=== PATIENT | female | born 1945 | race Caucasian/White ===

== ENCOUNTER 2017-01-01 15:14 | Observation (INO) ==
[2017-01-01 15:49] LABS: Basophils # 0.1 10*3/uL (0.0-0.2); Basophils % 0.7 % (0.0-0.8); Eosinophils # 0.2 10*3/uL (0.0-0.87); Eosinophils % 1.6 % (0.00-10.9); Hematocrit 36.2 VOL% (35.7-47.0); Hemoglobin 12.4 GM/DL (12.0-16.0); Immature Granulocytes % 0.4 %; Immature Granulocytes Absolute 0.04 #; Lymphocytes # 3.7 10*3/uL (1.4-4.0); Lymphocytes % 35.4 % (21.3-54.2); Mean Corpuscular HGB Conc 34.3 GM/DL (32-36); Mean Corpuscular Hemoglobin 33 PG (27-34); Mean Platelet Volume 10.6 FL (9.6-12.0); Monocytes # 0.8 10*3/uL (0.11-0.8); Monocytes % 7.6 % (1.7-12.7); Neutrophils # 5.7 10*3/uL (1.4-7.4); Neutrophils % 54.3 % (38.7-73.9); Platelet Count 205 T/CUMM (130-400); Red Blood Count 3.81 MC/CUMM (3.8-5.5); Red Cell Distribution Width 13.6 % (9.3-17.3); White Blood Count 10.4 T/CUMM (4-12)
--- NOTE | 2017-01-01 16:05 | XRay Report ---
XR chest 2V Indication: Chest pain Comparison: Chest x-ray dated March 16, 2014 Technique: Frontal and lateral views of the chest. Findings: The cardiomediastinal silhouette is stable in configuration. Chronic change of the lungs without focal consolidation, pleural effusion, or pneumothorax. Visualized osseous and surrounding soft tissue structures appear grossly unchanged. IMPRESSION: No acute cardiopulmonary process demonstrated. PROCEDURE INTERPRETED AT [facility] DEPARTMENT OF RADIOLOGY Final Report Signed by: Dr Richard Avila
[2017-01-01 16:24] LABS: Alanine Aminotransferase 27 U/L (13-56); Albumin 3.6 G/DL (3.4-5.0); Alkaline Phosphatase 91 U/L (45-117); Aspartate Amino Transferase 19 U/L (0-37); Bilirubin,Total < 0.39 MG/DL (0.2-1.0); Blood Urea Nitrogen 14 MG/DL (7-18); Glucose 84 MG/DL (74-106); Osmolality,Calculated 280.3 MOS/KG (273-304); Potassium 3.8 MMOL/L (3.5-5.1); Sodium 141 MMOL/L (136-145); Total Protein 7.1 G/DL (6.4-8.3)
[2017-01-01 16:25] LABS: Troponin I Only < 0.015 NG/ML (0.00-0.045)
[2017-01-01] MEDS ORDERED: ASPIRIN 325 MG TABLET PO STA (16:25)
[2017-01-01] MEDS ORDERED: NITROGLYCERIN 2% OINT 1 INCH/GM PACK TOP STA (16:25)
[2017-01-01] MEDS ORDERED: MORPHINE 2 MG/1 ML SYRINGE IV STA (16:25)
[2017-01-01] MEDS ORDERED: ALUM/MAG/SIMETH/LIDO VISC 1:1 30 ML BOTTLE PO STA (16:25)
[2017-01-01] MEDS ORDERED: ENOXAPARIN 100 MG/ML SYRINGE SUBCUT STA (16:25)
[2017-01-01] MEDS ORDERED: ONDANSETRON 4 MG/2 ML VIAL IV STA (16:25)
[2017-01-01] MEDS ORDERED: NITROGLYCERIN SL 0.4 MG TABLET SL PRN (16:25)
--- NOTE | 2017-01-01 16:40 | Emergency Department Note ---
Panchito Nieves Manpreet, am scribing for, and in the presence of, Barron Piper MD 16: 29. Veronique Nieves James D, MD, personally performed the services described in this documentation, ascribed by Randolph Flanagan in my presence, and it is both accurate and complete [id number] . Arrival - Arrival Chief Complaint: Chest Pain Stated Complaint: chest pain ED Nursing Triage Note: pain in left side of chest left arm shoulder and up into her neck that started yesterday. has taken 3ntg today at around 1200 with little relief. Mode of Arrival: Ambulatory Limitations: No Limitations Source: Patient, RN Notes Reviewed Time Seen by Provider: 01/01/17 16:19 - History of Present Illness HPI Narrative: Pt is a 71 y/o female, with PMHx of HTN, MD, CHF, and HLD, who presents to the ED with CC of left sided CP and into her left shoulder and left upper back onset yesterday. 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 Pt denies any SOB, diaphoreis, fever, chills, or N/V/D. Pt's mortgage loan specialist is Dr. Latif and had stents placed in 2010. Pt states the pain currently is similar to the pain prior to the stents. Pt reports of being complaint on plavix and coreg. No other pains/complaints reported to the ED. Onset (ago): day(s) (Yesterday) Consistency: constant Severity: moderate Severity scale (1-10): 3 Allergies/Adverse Reactions: Allergies Allergy/AdvReac Type Severity Reaction Status Date / Time bupropion Allergy Severe rash Verified 01/10/15 06:49 itching ciprofloxacin Allergy Severe rash Verified 01/10/15 06:49 itching Home Medications: Home Medications Medication Instructions Recorded Confirmed Type Aclidinium Inhaler [Tudorza] 400 mcg INH BID 12/08/14 01/19/15 History Albuterol Sulfate [Proair HFA] 2 puff INH Q4H PRN 12/08/14 01/18/15 History Budesonide/Formoterol 80-4.5 2 puff INH BID 12/08/14 01/19/15 History [Symbicort 80-4.5] Carvedilol 6.25 mg PO BID 12/08/14 01/19/15 History Clopidogrel Bisulfate [Clopidogrel] 75 mg PO DAILY 12/08/14 01/19/15 History Isosorbide Dinitrate 20 mg PO DAILY 12/08/14 01/19/15 History Pantoprazole Sodium [Protonix] 40 mg PO DAILY 12/08/14 01/19/15 History Simvastatin 80 mg PO BEDTIME 12/08/14 01/19/15 History Trazodone HCl 50 mg PO BEDTIME 12/08/14 01/19/15 History Venlafaxine HCl [Effexor Xr] 150 mg PO DAILY 12/08/14 01/19/15 History clonazePAM [Clonazepam] 1 mg PO BEDTIME 12/08/14 01/19/15 History Aspirin [Ecotrin] 81 mg PO DAILY 12/30/14 01/19/15 History Bumetanide 2 mg PO DAILY 12/30/14 01/19/15 History Furosemide Tab [Lasix Tab] 1 tablet PO DAILY 12/30/14 01/19/15 History Ondansetron Tab [Zofran Tab] 4 mg PO DIRECTED PRN 12/30/14 01/19/15 History Review of System - Review of System 12 point system: reviewed and no additional remarkable complaints except as stated - Review of System Constitutional: Absent: chills, diaphoresis, fever Respiratory: Absent: cough, respiratory distress, wheezing Cardiovascular: Present: chest pain Gastrointestinal: Absent: abdominal pain, nausea, vomiting, diarrhea Genitourinary female: Absent: dysuria Musculoskeletal: Present: arm pain (Left upper shoulder pain), lower back pain ( Left upper back pain) Skin: Absent: rash, lesions Neurological: Absent: headache, weakness, numbness, paresthesias Medical,Surgical,& Family Hx - Medical History Cardio: History of: CHF, Hypertension, MD Psychological: History of: Anxiety Disorders, Depression Neurology: History of: Peripheral Neuropathy (hands past history) No history of: Seizures HEENT: History of: Eye Problem (GLASSES), Dental Problems (UPPER DENTURE) Endocrine: History of: Dyslipidemia Respiratory: History of: Respiratory Problems (SHORTNESS OF BREATH, COUGH) Genitourinary: History of: Kidney Stones Gastrointestinal: History of: Polyps (REMOVED) - Surgical History Cardiac Surgeries: Sugical HX of: Cardiac Catheterization (STENT X2) Thoracic Surgeries: Surgical HX of;: Lithotripsy HEENT Surgeries: Surgical HX of: Tonsilectomy & Adenoidectomy Abdominal Surgeries: Surgical HX of: Abdominal Surgery, Colonoscopy Reproductive Surgeries: Surgical HX of;: Gynecologic Surgery, Hysterectomy Orthopedic Surgeries: Surgical HX of;: Orthopedic Surgery (LEFT KNEE SCOPE) - Family History Family History: Reports;: Family Cancer (BROTHER), Family Diabetes (2 BROTHERS, MOTHER), Family Heart Disease (MOTHER, SISTERS , BROTHERS), Family Hypertension (MOTHER , BROTHERS, SISTERS), Family Stroke (MOTHER, BROTHER) - Social History Smoking Status: Current every day smoker Exam Vital Signs: Vital Signs Temperature 97.5 F L 01/01/17 15:17 Pulse Rate 78 01/01/17 15:17 Respiratory Rate 18 01/01/17 15:17 Blood Pressure 158/110 01/01/17 15:17 O2 Sat by Pulse Oximetry 98 01/01/17 15:17 GENERAL: This is a well-nourished well-developed white female in no apparent distress. VITAL SIGNS: Reviewed HEENT: Head is atraumatic and normocephalic. Pupils are equal round react to light. Extraocular movements are intact. Oropharynx is benign with moist mucous membranes. NECK: Neck is soft and supple without tenderness. There are no masses. There is no lymphadenopathy. LUNGS: Lungs are clear to auscultation. Chest rises symmetrically. There is no chest wall tenderness. CV: Heart is regular rate and rhythm without murmurs rubs or gallops. ABDOMEN: Abdomen is soft, nontender to palpation. There are no abdominal abnormal masses palpated. There is no organomegaly. Bowel sounds are present and active. SKIN: Skin is warm and dry. No rash. EXTREMITIES: Patient has full range of motion without tenderness. There is no pedal edema. NEUROLOGIC: Awake alert and oriented 4. Cranial nerves II through XII are grossly intact. Motor is 5 over 5 in all extremities bilaterally. Course - Consultations Consultation #1: Discussed with hospitalist. Patient will be admitted to their service. Time: 16:38 Results - Labs CBC & BMP: 01/01/17 15:36 01/01/17 15:36 Lab Results: I have reviewed the patients labs Labs: Laboratory Tests 01/01/17 15:36 Troponin I < 0.015 - EKG EKG results: interpreted by ERMD - Impressions EKG: Normal sinus rhythm with a rate of 77, left atrial enlargement, nonspecific ST-T wave changes, normal axis. - Diagnostic Findings Procedure: Chest x-ray: image reviewed by me (No infiltrates, no pleural effusions, no cardiomegaly.) Disposition Clinical Impression: Chest pain, Coronary artery disease, Essential hypertension Case discussed with: patient Disposition: Still a Patient Condition: Stable
[2017-01-01] MEDS ORDERED: ENOXAPARIN 60 MG/0.6 ML SYRINGE ONE (16:43)
[2017-01-01] MEDS ORDERED: MORPHINE 2 MG/1 ML SYRINGE ONE (16:44)
[2017-01-01] MEDS ORDERED: ALUM/MAG/SIMETH/LIDO VISC 1:1 30 ML BOTTLE PO ONE (16:44)
[2017-01-01] MEDS ORDERED: ASPIRIN 325 MG TABLET ONE (16:44)
[2017-01-01] MEDS ORDERED: NITROGLYCERIN 2% OINT 1 INCH/GM PACK TOP ONE (16:44)
[2017-01-01] MEDS ORDERED: ONDANSETRON 4 MG/2 ML VIAL ONE (16:44)
--- NOTE | 2017-01-01 16:47 | Order Completion Report ---
See report scanned to EMR
[2017-01-01 16:50] LABS: INR 0.9; Partial Thromboplastin Time 26.8 SECS (0-40)
[2017-01-01] MEDS ORDERED: ONDANSETRON 4 MG TABLET PO PRN (17:03)
--- NOTE | 2017-01-01 17:11 | Cardiology History & Physical ---
Assessment and Plan - Time spent with patient Time spent with patient: Greater than 30 minutes Time spent discussing smoking cessation with patient: 3 to 10 minutes (1) Dyslipidemia Status: Chronic Assessment and plan: SEE PLAN OF CARE LISTED BELOW Current Visit: Yes (2) Tobacco use Status: Chronic Assessment and plan: SEE PLAN OF CARE LISTED BELOW Current Visit: Yes (3) Chest pain Status: Acute Assessment and plan: SEE PLAN OF CARE LISTED BELOW Current Visit: Yes (4) Coronary artery disease Status: Chronic Assessment and plan: SEE PLAN OF CARE LISTED BELOW Current Visit: Yes Qualifiers: Coronary Disease-Associated Artery/Lesion type: poarch artery [place] vs. 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 Reeder, 71 WF, has risk factors significant for: Known CAD S/P PCI to the proximal LAD March 15, 2014 (see scanned in report under external records), hypertension, dyslipidemia, tobaccoism and sedentary lifestyle. Presented to the ED this afternoon after experiencing chest pain while walking through [employer] earlier in the day. Chest discomfort is "hard to describe" but located in the left chest radiating up to the left neck and left shoulder. Not associated with shortness of breath, nausea, vomiting or diaphoresis. She could identify no aggravating factors and the discomfort lasted several hours until she received a cocktail of medications including: GI cocktail, IV Morphine , Nitroglycerin paste, Aspirin. Rates his discomfort at its worst as a 7 on a scale of 1-10, currently chest pain-free. It is not reproducible with palpation or movement. When asked if the discomfort is similar to the discomfort she experienced prior to receiving recent PCI she acknowledges this is similar to the pain. On arrival, blood pressure 158 of 110. This is improved after being given IV Lopressor. Reports her blood pressures usually well controlled. Cardiac biomarkers are negative, EKG does not reveal acute AR. Patient is agreeable for hospital stay overnight. We will admit her, follow cardiac biomarkers and EKG. She has received in the appropriate acute coronary syndrome protocol. I will keep her n.p.o. after midnight tonight and reassess her symptoms in the morning. She may be a candidate for stress testing versus cardiac catheterization versus discharge home with outpatient follow-up. She and her verbalized understanding of this information. I will further discuss with Dr. Hatfield and await additional recommendations. IMPRESSION/PLAN: 1. CHEST PAIN - some typical and atypical features of angina. Will further monitor overnight with serial cardiac biomarkers and EKG. May need stress testing versus heart catheterization versus outpatient follow-up. We will reassess in the morning. GI cocktail as needed, PPI. D-dimer. 2. KNOWN CAD - S/P PCI of the proximal LAD 2013. Continues to take aspirin and Plavix. Will continue beta-catalina, ARB, lipid-lowering agent. 3. HYPERTENSION - suboptimally controlled at this time. Usually well controlled. Will follow her blood pressure and make adjustments accordingly 4. DYSLIPIDEMIA - fasting lipid profile in the morning. Continue lipid- lowering agent. 5. TOBACCOISM - greater than 5 minutes was spent today discussing the merits of tobacco cessation Home Medications Medication Instructions Recorded Confirmed Type Aclidinium Inhaler [Tudorza] 400 mcg INH BID 12/08/14 01/19/15 History Albuterol Sulfate [Proair HFA] 2 puff INH Q4H PRN 12/08/14 01/18/15 History Budesonide/Formoterol 80-4.5 2 puff INH BID 12/08/14 01/19/15 History [Symbicort 80-4.5] Carvedilol 6.25 mg PO BID 12/08/14 01/19/15 History Clopidogrel Bisulfate [Clopidogrel] 75 mg PO DAILY 12/08/14 01/19/15 History Isosorbide Dinitrate 20 mg PO DAILY 12/08/14 01/19/15 History Pantoprazole Sodium [Protonix] 40 mg PO DAILY 12/08/14 01/19/15 History Simvastatin 80 mg PO BEDTIME 12/08/14 01/19/15 History Trazodone HCl 50 mg PO BEDTIME 12/08/14 01/19/15 History Venlafaxine HCl [Effexor Xr] 150 mg PO DAILY 12/08/14 01/19/15 History clonazePAM [Clonazepam] 1 mg PO BEDTIME 12/08/14 01/19/15 History Aspirin [Ecotrin] 81 mg PO DAILY 12/30/14 01/19/15 History Bumetanide 2 mg PO DAILY 12/30/14 01/19/15 History Furosemide Tab [Lasix Tab] 1 tablet PO DAILY 12/30/14 01/19/15 History Ondansetron Tab [Zofran Tab] 4 mg PO DIRECTED PRN 12/30/14 01/19/15 History Allergies Allergy/AdvReac Type Severity Reaction Status Date / Time bupropion Allergy Severe rash Verified 01/10/15 06:49 itching ciprofloxacin Allergy Severe rash Verified 01/10/15 06:49 itching Review of systems: REVIEW OF SYSTEMS: - Constitutional Constitutional: Denies fatigue. Absent: syncope, anorexia, night sweats - EENT Eyes: Absent: blurry vision, loss of vision, diplopia Ears: Absent: decreased hearing, ear pain, ear discharge - Cardiovascular Cardiovascular: Present: chest pain at rest and with exertion. Denies dyspnea on exertion, edema, palpitations. Absent: chest pain with deep breath, claudication - Respiratory Respiratory: Denies: BAIRD, cough. Absent: wheezing, hemoptysis, change in phlegm color - Gastrointestinal Gastrointestinal: Denies: constipation. Absent: abdominal pain, hematemesis, hematochezia, melena, change in bowel habits, nausea - Genitourinary Genitourinary: Absent: difficulty urinating, dysuria, urinary hesitancy, flank pain - Musculoskeletal Musculoskeletal: Present: Chronic back pain Absent: joint swelling, muscle cramps, muscle weakness - Neurological Neurological: Present: normal gait without frequent falls. Absent: dizziness, hemiparesis - Psychiatric Psychiatric: Absent: anxiety, depression, difficulty concentrating - Endocrine Endocrine: Absent: cold intolerance, heat intolerance, polyuria, polyphagia, polydipsia - Hematologic/Lymphatic Hematologic/Lymphatic: Present: easy bruising. Absent: easy bleeding -Integumentary Integumentary: Absent: lesions, rashes, skin breakdown Medical,Surgical,& Family Hx - Medical History Cardio: History of: CAD, Hypertension, AR Psychological: History of: Anxiety Disorders, Depression Neurology: History of: Peripheral Neuropathy (hands past history) No history of: Seizures HEENT: History of: Eye Problem (GLASSES), Dental Problems (UPPER DENTURE) Endocrine: History of: Dyslipidemia Respiratory: History of: Respiratory Problems (SHORTNESS OF BREATH, COUGH) Genitourinary: History of: Kidney Stones Gastrointestinal: History of: Polyps (REMOVED) - Surgical History Cardiac Surgeries: Sugical HX of: Cardiac Catheterization (STENT X2) Thoracic Surgeries: Surgical HX of;: Lithotripsy HEENT Surgeries: Surgical HX of: Tonsilectomy & Adenoidectomy Abdominal Surgeries: Surgical HX of: Abdominal Surgery, Colonoscopy Reproductive Surgeries: Surgical HX of;: Gynecologic Surgery, Hysterectomy Orthopedic Surgeries: Surgical HX of;: Orthopedic Surgery (LEFT KNEE SCOPE) - Family History Family History: Reports;: Family Cancer (BROTHER), Family Diabetes (2 BROTHERS, MOTHER), Family Heart Disease (MOTHER, SISTERS , BROTHERS), Family Hypertension (MOTHER , BROTHERS, SISTERS), Family Stroke (MOTHER, BROTHER) - Social History Smoking Status: Current every day smoker Have you smoked in the last 12 months: Yes Time spent discussing smoking cessation with patient: 3 to 10 minutes Frequency of Alcohol Use: Rarely Type of Drug Use: None Marital Status: Lives With:: Spouse Functional capacity: independent ambulation Cardiology Physical Exam - Constitutional Vitals: Vital Signs Temp Pulse Resp BP Pulse Ox 97.5 F L 78 18 158/110 98 01/01/17 15:17 01/01/17 15:17 01/01/17 15:17 01/01/17 15:17 01/01/17 15:17 Intake and Output 01/01/17 01/01/17 01/01/17 07:59 15:59 23:59 Other: Weight 62.596 kg Patient Weight 01/01/17 23:59 Weight 62.596 kg Exam: General: [Appears well with no apparent distress.] [Pleasant and cooperative. ] [Appears comfortable.] HEENT: [PERRL, normocephalic, atraumatic. Mucous membranes moist. No jaundice noted. Conjunctiva moist and clear, sclerae anicteric] Neck: No JVD/HJR, no thyromegaly or lymphadenopathy noted. No carotid bruit appreciated Cardiac: [Regular rate and rhythm.] [No murmur, rub or gallop.] Nontender to touch or movement. Lungs: [Clear to auscultation without accessory muscle use to assist the respiratory pattern.] Oxygen in use via nasal cannula Abdomen: Soft, bowel sounds normoactive. Nontender and nondistended. No abdominal bruit or thrill noted. No masses noted. Musculoskeletal: No fluid collection. Decreased range of motion is noted. Extremities: No clubbing, cyanosis noted. [ No edema noted.] Upper extremity pulses 2+. Lower extremity pulses 2+. Capillary refill less than 3 seconds. Skin: No unusual lesions or rashes. No skin breakdown appreciated. Neuro: Awake, alert and oriented 3. Moves all extremities well without hemiparesis or paralysis. No essential tremor is appreciated. Result/EKG - Labs CBC & BMP: 01/01/17 15:36 01/01/17 15:36 Lab Results: I have reviewed the past 24 hour labs Labs: Laboratory Results - last 24 hr 01/01/17 01/01/17 01/01/17 15:36 15:36 15:36 WBC 10.4 RBC 3.81 Hgb 12.4 Hct 36.2 MCV 95.0 MCH 33 MCHC 34.3 RDW 13.6 Plt Count 205 MPV 10.6 Neut % (Auto) 54.3 Lymph % (Auto) 35.4 [place] % (Auto) 7.6 Eos % (Auto) 1.6 Baso % (Auto) 0.7 Neut # (Auto) 5.7 Lymph # (Auto) 3.7 [place] # (Auto) 0.8 Eos # (Auto) 0.2 Baso # (Auto) 0.1 Immature Gran % 0.4 Nucleated RBC % 0.0 Immature Gran # 0.04 Nucleated RBCs # 0.00 Immature Plt Fraction 0.0 INR PT Patient/Control Mix Circ Anticoag PTT Sodium 141 Potassium 3.8 Chloride 106 Carbon Dioxide 30 Anion Gap 8.8 BUN 14 Creatinine 1.00 GFR Calculation 54 BUN/Creatinine Ratio 14.00 Glucose 84 Calculated Osmolality 280.3 Calcium 9.0 Total Bilirubin < 0.39 AST 19 ALT 27 Alkaline Phosphatase 91 Total Creatine Kinase 41 CK-MB (CK-2) 1.2 Troponin I < 0.015 Total Protein 7.1 Albumin 3.6 Globulin 3.5 Albumin/Globulin Ratio 1.0 L 01/01/17 16:00 WBC RBC Hgb Hct MCV MCH MCHC RDW Plt Count MPV Neut % (Auto) Lymph % (Auto) [place] % (Auto) Eos % (Auto) Baso % (Auto) Neut # (Auto) Lymph # (Auto) [place] # (Auto) Eos # (Auto) Baso # (Auto) Immature Gran % Nucleated RBC % Immature Gran # Nucleated RBCs # Immature Plt Fraction INR 0.9 PT Patient/Control Mix 10.0 Circ Anticoag PTT 26.8 Sodium Potassium Chloride Carbon Dioxide Anion Gap BUN Creatinine GFR Calculation BUN/Creatinine Ratio Glucose Calculated Osmolality Calcium Total Bilirubin AST ALT Alkaline Phosphatase Total Creatine Kinase CK-MB (CK-2) Troponin I Total Protein Albumin Globulin Albumin/Globulin Ratio - Diagnostic Findings Procedure: Chest x-ray: report reviewed by me - EKG EKG results: interpreted by me EKG shows: sinus rhythm
[2017-01-01] MEDS ORDERED: POTASSIUM CHLORIDE RIDER 10 MEQ in PREMIX 1 EACH IV PRN (17:41)
[2017-01-01] MEDS ORDERED: MAGNESIUM SULF RIDER 2 GM in PREMIX 1 EACH IV PRN ×2 (17:41→18:03)
[2017-01-01] MEDS ORDERED: DIAZEPAM 5 MG TABLET PO ONE (17:41)
[2017-01-01] MEDS ORDERED: diphenhydrAMINE CAP 25 MG CAPSULE PO ONE (17:41)
[2017-01-01] MEDS ORDERED: SODIUM CHLORIDE 0.9% 1,000 ML IV SCH (18:03)
[2017-01-01] MEDS ORDERED: ONDANSETRON 4 MG/2 ML VIAL IV PRN (18:03)
[2017-01-01] MEDS ORDERED: MAGNESIUM SULF RIDER 4 GM in PREMIX 1 EACH IV PRN (18:03)
[2017-01-01] MEDS ORDERED: ACETAMINOPHEN 325 MG TABLET PO PRN (18:03)
[2017-01-01 18:06] LABS: Calcium 8.8 MG/DL (8.5-10.1); Magnesium 2.1 MG/DL (1.8-2.4); Osmolality,Calculated 280.3 MOS/KG (273-304); Potassium 3.8 MMOL/L (3.5-5.1)
[2017-01-01] MEDS: PANTOPRAZOLE 40 MG TABLET PO SCH (18:50)
[2017-01-01] MEDS: SODIUM CHLORIDE 0.45% 1,000 ML IV SCH (18:54)
[2017-01-01] MEDS ORDERED: ALBUTEROL 2.5 MG/3 ML NEB RESP TX PRN (19:00)
--- NOTE | 2017-01-01 19:47 | Event Note ---
Interviewed and examined the patient personally. Discussed findings with the nurse practitioner. I agree with the assessment and plan, with additions as below. 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 71-year-old female, presenting with chest pain, suggestive of rest angina. No MT. History of CAD, prior PCI. -Continue dual antiplatelets, beta [place], statin. -NTG as needed for chest -N.p.o. after midnight, plan for LHC in a.m., will d/w Dr. De La Rosa
[2017-01-01] MEDS ORDERED: SIMVASTATIN 80 MG TABLET PO SCH (21:00)
[2017-01-01] MEDS: CARVEDILOL 6.25 MG TABLET PO SCH (21:17)
[2017-01-01] MEDS: traZODone 50 MG TABLET PO SCH (21:18)
[2017-01-01] MEDS: MORPHINE 2 MG/1 ML SYRINGE IV PRN (21:18)
[2017-01-01] MEDS: clonazePAM 0.5 MG TABLET PO SCH (21:18)
[2017-01-01] MEDS: BUDESONIDE/FORMOTEROL 80-4.5 INHALER 6.9 GM INH SCH (22:00)
--- NOTE | 2017-01-02 00:12 | Order Completion Report ---
See report scanned to EMR
[2017-01-02] MEDS: IPRATROPIUM 500 MCG/2.5 ML NEB RESP TX SCH ×4 (00:25→19:43)
[2017-01-02 07:33] LABS: Basophils # 0.1 10*3/uL (0.0-0.2); Basophils % 0.8 % (0.0-0.8); Eosinophils # 0.2 10*3/uL (0.0-0.87); Eosinophils % 2.1 % (0.00-10.9); Hematocrit 31.9 VOL% (35.7-47.0); Hemoglobin 10.7 GM/DL (12.0-16.0); Immature Granulocytes % 0.5 %; Immature Granulocytes Absolute 0.04 #; Lymphocytes % 39.2 % (21.3-54.2); Mean Corpuscular HGB Conc 33.5 GM/DL (32-36); Mean Corpuscular Hemoglobin 33 PG (27-34); Mean Platelet Volume 11.2 FL (9.6-12.0); Monocytes # 0.7 10*3/uL (0.11-0.8); Monocytes % 8.6 % (1.7-12.7); Neutrophils # 3.7 10*3/uL (1.4-7.4); Neutrophils % 48.8 % (38.7-73.9); Platelet Count 156 T/CUMM (130-400); Red Blood Count 3.29 MC/CUMM (3.8-5.5); Red Cell Distribution Width 13.7 % (9.3-17.3); White Blood Count 7.7 T/CUMM (4-12)
[2017-01-02 08:11] LABS: Calcium 8.1 MG/DL (8.5-10.1); Magnesium 2.1 MG/DL (1.8-2.4); Osmolality,Calculated 279.4 MOS/KG (273-304); Potassium 4.3 MMOL/L (3.5-5.1)
[2017-01-02] MEDS ORDERED: ISOSORBIDE DINITRATE 20 MG TABLET PO SCH (09:00)
[2017-01-02] MEDS ORDERED: BUMETANIDE 1 MG TABLET PO SCH (09:00)
[2017-01-02] MEDS ORDERED: NON-FORMULARY MEDICATION (Pantoprazole Sodium [Protonix] 40 MG) PO SCH (09:00)
[2017-01-02] MEDS ORDERED: DIAZEPAM 5 MG TABLET ONE (10:03)
[2017-01-02] MEDS ORDERED: diphenhydrAMINE CAP 25 MG CAPSULE ONE (10:04)
[2017-01-02] MEDS: CLOPIDOGREL 75 MG TABLET PO SCH (10:07)
[2017-01-02] MEDS: ASPIRIN EC 81 MG TABLET PO SCH (10:07)
[2017-01-02] MEDS ORDERED: HEPARIN/NACL 0.9% 2 UNITS/ML 1,000 ML IV ONE (10:12)
[2017-01-02] MEDS ORDERED: LIDOCAINE 1% 20 ML VIAL ONE (10:12)
[2017-01-02] MEDS ORDERED: MIDAZOLAM 2 MG/2 ML VIAL ONE ×2 (10:19→10:37)
[2017-01-02] MEDS ORDERED: fentaNYL 100 MCG/2 ML VIAL ONE (10:19)
--- NOTE | 2017-01-02 10:28 | History and Physical Update ---
Sedation H&P Update - History and Physical H&P was reviewed, the patient examined and there: are no changes in the patients condition since last H&P was completed. - Dictation Physical: refer to H&P completed by admitting physician - Physical Exam Mental Status: alert and oriented Heart: regular rate and rhythm Lung: clear to auscultation Abdomen: within normal limits Vitals: within normal limits History and Physical Changes: I personally interviewed and examined the patient, reviewed the chart, discussed the patient's history with Dr. Saez. She has a history of coronary artery disease and presents with her typical angina. She has no contraindication to dual antiplatelet therapy, denies IV contrast allergy, denies history of GI bleeding. I discussed the role, risks and benefits of cardiac catheterization with the patient and she is agreeable to proceeding. - Sedation Plan for Sedation: moderate Patient Consent: Procedure disscussed with patient and patinet has consented., Risks and benefits were discussed with patient,including infection,, bleeding, injury to surrounding structures, seizure, temporary nerve, Patient understands and accepts potential risks/benefits and agrees to, proceed. ASA Class: IV Airway Assessment: Class I: Soft palate, uvula, fauces, pillars visible
[2017-01-02] MEDS ORDERED: ACETAMINOPHEN/CODEINE 300-30 MG TABLET PO PRN (11:08)
--- NOTE | 2017-01-02 16:39 | Order Completion Report ---
See report scanned to EMR
--- NOTE | 2017-01-02 16:52 | Discharge Summary ---
Hospital Course - Hospital Course Hospital Course: SENIOR LINUX ENGINEER: DR. LATIF SUMMARY: Ms. Reeder, 71 WF, has risk factors significant for: known CAD S/P PCI to the proximal LAD March 15, 2014 (see scanned in report under external records), hypertension, dyslipidemia, tobaccoism and sedentary lifestyle. Admitted January 01, 2017 with complaints of chest pain concerning for angina. Underwent elective cardiac catheterization 01/02/2017, performed by Dr. De La Rosa , with stable coronary artery disease noted. Moderate to severe mitral regurgitation that appeared to be catheter induced was noted. Patient tolerated the procedure well without complication was returned to our telemetry unit in stable condition. Right groin is soft, free of hematoma. She has been ambulating without difficulty. The evening of the cardiac catheterization, patient had complaints of some (noncardiac) chest discomfort and left shoulder pain similar to the discomfort which brought her to the emergency department. Isosorbide dinitrate 20 mg was increased to twice daily dosing, Ranexa 500 mg orally twice daily added. Continue PPI. For her left shoulder pain she was given Pearl 7.5/325 1 p.o. every 4 hours as needed moderate pain and this improved overnight. Dispense 30 and 1 refill. Having felt she is met maximal medical therapy, patient is being discharged home in stable condition. She will be given a 2 -3 week follow-up appoint with Dr. Latif. The week prior to her visit she will be scheduled for an echocardiogram to evaluate her mitral regurgitation. She is also being given a follow-up appointment with her primary care provider on Friday, January 06, 2017 for repeat BMP (potassium 5.2 this morning) and to evaluate noncardiac left shoulder pain should the pain persist. - Time spent with patient Time with patient DS: Greater than 30 minutes Time spent discussing smoking cessation with patient: 3 to 10 minutes Diagnosis - Discharge Diagnosis (1) Dyslipidemia Status: Chronic (2) Tobacco use Status: Chronic (3) Chest pain Status: Acute (4) Coronary artery disease Status: Chronic (5) Essential hypertension Status: Chronic (6) Mitral regurgitation Status: Acute Specialty Discharge - Follow Up or Referrals Follow up with: Luis Latif MD [Physician] - (2-3 weeks. At that visit the following labs will need to be obtained, BMP, magnesium, CBC, EKG. Next week please schedule echocardiogram (RE: Mitral regurgitation). Dr. Latif to read at [facility].) Discharge Plan - Discharge Data Disposition: Disch To Home/Self Care Condition at Discharge: Stable Discharge Diet: heart healthy Activity: other (Post cath expectations) Hygiene: other (Post cath expectations) Weight Bearing at Discharge: other (Post cath expectations) Driving: other (Post cath expectations) Contact your physician if you experience:: fever over 101, Difficulty voiding, Redness or swelling, Nausea/Vomiting, Shortness of breath, Bleeding, pain uncontrolled by pain medications - Discharge Medications New Furosemide Tab [Lasix Tab] 20 mg PO DAILY tablet Isosorbide Dinitrate [Isordil] 20 mg PO BID #60 tablet Nitroglycerin Sl Tab [Nitrostat] 0.4 mg SL Q5M PRN tablet PRN Reason: Chest Pain Rosuvastatin [Crestor] 20 mg PO BEDTIME #30 tablet Aspirin EC Tab 81 mg PO DAILY tablet Ranolazine [Ranexa] 500 mg PO BID #60 tablet Continue clonazePAM [Clonazepam] 1 mg PO BEDTIME Budesonide/Formoterol 80-4.5 [Symbicort 80-4.5] 2 puff INH BID Pantoprazole Sodium [Protonix] 40 mg PO BEDTIME Clopidogrel Bisulfate [Clopidogrel] 75 mg PO QAM Carvedilol 6.25 mg PO BID Trazodone HCl 50 mg PO BEDTIME Venlafaxine HCl [Effexor XR] 150 mg PO QAM Aclidinium Inhaler [Tudorza] 400 mcg INH BID Discontinued Simvastatin 80 mg PO BEDTIME Isosorbide Dinitrate 20 mg PO QAM - Follow Up or Referral Follow Up: Luis Latif MD [Physician] - (2-3 weeks. At that visit the following labs will need to be obtained, BMP, magnesium, CBC, EKG. Next week please schedule echocardiogram (RE: Mitral regurgitation). Dr. Latif to read at [facility].) - Forms/Instructions Instructions: Coronary Artery Disease (GEN), Left Heart Catheterization (DC), Heart Healthy Diet (GEN) Additional Discharge Instructions: Please schedule patient for follow-up with her primary care provider on Friday, January 06, 2017 for BMP and to evaluate left shoulder pain Exam - Constitutional Vitals: Period Temp Pulse Resp BP Sys/Levi Pulse Ox Last 24 Hr 96.2 F-98.1 F 61-81 16-20 107-158/53-110 92-98 Exam: General: [Appears well with no apparent distress.] [Pleasant and cooperative. ] [Appears comfortable.] HEENT: [PERRL, normocephalic, atraumatic. Mucous membranes moist. No jaundice noted. Conjunctiva moist and clear, sclerae anicteric] Neck: No JVD/HJR, no thyromegaly or lymphadenopathy noted. No carotid bruit appreciated Cardiac: [Regular rate and rhythm.] [No murmur, rub or gallop.] Lungs: [Clear to auscultation without accessory muscle use to assist the respiratory pattern.] Oxygen in use via nasal cannula Abdomen: Soft, bowel sounds normoactive. Nontender and nondistended. No abdominal bruit or thrill noted. No masses noted. Musculoskeletal: No fluid collection. Decreased range of motion is noted. Extremities: Right groin soft, free of hematoma or bruit. No clubbing, cyanosis noted. [ No edema noted.] Upper extremity pulses 2+. Lower extremity pulses 2+. Capillary refill less than 3 seconds. Skin: No unusual lesions or rashes. No skin breakdown appreciated. Neuro: Awake, alert and oriented 3. Moves all extremities well without hemiparesis or paralysis. No essential tremor is appreciated. Discharge Results Procedures and tests throughout hospitalization: Pending Orders 01/02/17 01:07 CL heart Routine 01/03/17 04:00 Basic Metabolic Panel IN AM Comp Blood Count Auto Diff IN AM Labs on day of discharge: Labs from last 24 hours 01/02/17 01/02/17 01/01/17 07:00 07:00 Unknown WBC 7.7 RBC 3.29 L Hgb 10.7 L Hct 31.9 L MCV 97.0 MCH 33 MCHC 33.5 RDW 13.7 Plt Count 156 D MPV 11.2 Neut % (Auto) 48.8 Lymph % (Auto) 39.2 [place] % (Auto) 8.6 Eos % (Auto) 2.1 Baso % (Auto) 0.8 Neut # (Auto) 3.7 Lymph # (Auto) 3.0 [place] # (Auto) 0.7 Eos # (Auto) 0.2 Baso # (Auto) 0.1 Immature Gran % 0.5 Nucleated RBC % 0.0 Immature Gran # 0.04 Nucleated RBCs # 0.00 Immature Plt Fraction 0.0 INR PT Patient/Control Mix D-Dimer, Quantitative 0.8 Circ Anticoag PTT Sodium 140 Potassium 4.3 Chloride 108 H Carbon Dioxide 29 Anion Gap 7.3 BUN 16 Creatinine 0.80 GFR Calculation 73 BUN/Creatinine Ratio 20.00 Glucose 90 Calculated Osmolality 279.4 Calcium 8.1 L Magnesium 2.1 Troponin I 01/01/17 01/01/17 01/01/17 21:40 19:26 17:15 WBC RBC Hgb Hct MCV MCH MCHC RDW Plt Count MPV Neut % (Auto) Lymph % (Auto) [place] % (Auto) Eos % (Auto) Baso % (Auto) Neut # (Auto) Lymph # (Auto) [place] # (Auto) Eos # (Auto) Baso # (Auto) Immature Gran % Nucleated RBC % Immature Gran # Nucleated RBCs # Immature Plt Fraction INR PT Patient/Control Mix D-Dimer, Quantitative Circ Anticoag PTT Sodium 141 Potassium 3.8 Chloride 106 Carbon Dioxide 29 Anion Gap 9.8 BUN 14 Creatinine 1.00 GFR Calculation 54 BUN/Creatinine Ratio 14.00 Glucose 86 Calculated Osmolality 280.3 Calcium 8.8 Magnesium 2.1 Troponin I < 0.015 < 0.015 01/01/17 16:00 WBC RBC Hgb Hct MCV MCH MCHC RDW Plt Count MPV Neut % (Auto) Lymph % (Auto) [place] % (Auto) Eos % (Auto) Baso % (Auto) Neut # (Auto) Lymph # (Auto) [place] # (Auto) Eos # (Auto) Baso # (Auto) Immature Gran % Nucleated RBC % Immature Gran # Nucleated RBCs # Immature Plt Fraction INR 0.9 PT Patient/Control Mix 10.0 D-Dimer, Quantitative Circ Anticoag PTT 26.8 Sodium Potassium Chloride Carbon Dioxide Anion Gap BUN Creatinine GFR Calculation BUN/Creatinine Ratio Glucose Calculated Osmolality Calcium Magnesium Troponin I - Imaging and Cardiology Cardiology Procedure: report reviewed by me Procedure: Chest x-ray: report reviewed by me DS: Provider Date of admission: 01/01/17 16:44 Primary care physician: Rupert Castillo MD Attending physician on admission: Naeem Saez MD Consults: 01/01/17 18:09 Consult to Pastoral Services [CONS] Routine Comment: Pastoral Screen: Request Regulatory Affairs Director Visit 01/02/17 11:08 Consult to Cardiac Rehabilitation [CONS] Routine Reason for Cardiac Rehabilitation: Risk Factor Modification Other Consult Comment: Evaluate and recommend Discharging clinician: Ksenia Bryant NP Expected date of discharge: 01/03/17
[2017-01-02] MEDS: MORPHINE 2 MG/1 ML SYRINGE IV PRN ×2 (17:57→21:17)
[2017-01-02] MEDS: VENLAFAXINE 75 MG TABLET PO SCH (17:58)
[2017-01-02] MEDS: CARVEDILOL 6.25 MG TABLET PO SCH ×2 (17:59→21:22)
[2017-01-02] MEDS: BUDESONIDE/FORMOTEROL 80-4.5 INHALER 6.9 GM INH SCH ×2 (17:59→21:21)
[2017-01-02] MEDS: PANTOPRAZOLE 40 MG TABLET PO SCH (17:59)
[2017-01-02] MEDS: FUROSEMIDE 20 MG TABLET PO SCH (18:04)
[2017-01-02] MEDS ORDERED: ROSUVASTATIN 20 MG TABLET PO SCH (21:00)
[2017-01-02] MEDS: ISOSORBIDE DINITRATE 20 MG TABLET PO SCH (21:21)
[2017-01-02] MEDS: RANOLAZINE 500 MG TABLET PO SCH (21:21)
[2017-01-02] MEDS: clonazePAM 0.5 MG TABLET PO SCH (21:22)
[2017-01-02] MEDS: traZODone 50 MG TABLET PO SCH (21:22)
[2017-01-03] MEDS: IPRATROPIUM 500 MCG/2.5 ML NEB RESP TX SCH ×3 (00:35→14:09)
[2017-01-03 05:04] LABS: Basophils # 0.1 10*3/uL (0.0-0.2); Basophils % 0.6 % (0.0-0.8); Eosinophils # 0.2 10*3/uL (0.0-0.87); Hematocrit 32.1 VOL% (35.7-47.0); Hemoglobin 10.9 GM/DL (12.0-16.0); Immature Granulocytes % 0.4 %; Immature Granulocytes Absolute 0.03 #; Lymphocytes # 2.9 10*3/uL (1.4-4.0); Lymphocytes % 33.6 % (21.3-54.2); Mean Corpuscular Hemoglobin 33 PG (27-34); Mean Corpuscular Volume 97.6 FL (87-102); Mean Platelet Volume 11.5 FL (9.6-12.0); Monocytes # 0.8 10*3/uL (0.11-0.8); Monocytes % 9.3 % (1.7-12.7); Neutrophils # 4.6 10*3/uL (1.4-7.4); Neutrophils % 54.1 % (38.7-73.9); Platelet Count 141 T/CUMM (130-400); Red Blood Count 3.29 MC/CUMM (3.8-5.5); Red Cell Distribution Width 13.6 % (9.3-17.3); White Blood Count 8.5 T/CUMM (4-12)
[2017-01-03 05:38] LABS: Calcium 8.7 MG/DL (8.5-10.1); Osmolality,Calculated 283.1 MOS/KG (273-304); Potassium 5.2 MMOL/L (3.5-5.1)
[2017-01-03] MEDS: CLOPIDOGREL 75 MG TABLET PO SCH (09:27)
[2017-01-03] MEDS: ASPIRIN EC 81 MG TABLET PO SCH (09:27)
[2017-01-03] MEDS: PANTOPRAZOLE 40 MG TABLET PO SCH (09:27)
[2017-01-03] MEDS: RANOLAZINE 500 MG TABLET PO SCH (09:27)
[2017-01-03] MEDS: CARVEDILOL 6.25 MG TABLET PO SCH (09:27)
[2017-01-03] MEDS: FUROSEMIDE 20 MG TABLET PO SCH (09:27)
[2017-01-03] MEDS: ISOSORBIDE DINITRATE 20 MG TABLET PO SCH (09:28)
[2017-01-03] MEDS: VENLAFAXINE 75 MG TABLET PO SCH (09:28)
[2017-01-03] MEDS: BUDESONIDE/FORMOTEROL 80-4.5 INHALER 6.9 GM INH SCH (09:30)
[2017-01-03 12:17] VITALS: BP 142/59
[2017-01-03] MEDS: SODIUM CHLORIDE 0.45% 1,000 ML IV SCH (13:34)
--- NOTE | 2017-01-03 13:42 | XRay Report ---
XR shoulder 2V LT Indication: Recurrent left shoulder/chest pain Comparison: None Technique: Frontal views of the left shoulder were obtained in internal and external rotation . Findings: No acute fracture or dislocation demonstrated. No radiopaque foreign body visualized. Cervical fusion hardware noted. IMPRESSION: As above. PROCEDURE INTERPRETED AT [facility] DEPARTMENT OF RADIOLOGY Final Report Signed by: Dr Richard Avila
== END 2017-01-03 15:38 | disposition home or self-care (01) ==
LOC: N.ED 15:14 → N.EDINP 15:14 → N.TELEN 18:00
PROVIDERS: ADMIT Internal Medicine Clinical Cardiac Electrophysiology; ATTEND Internal Medicine Clinical Cardiac Electrophysiology
PROC: CLCCHCL (ICD-10-PCS; 2017-01-02 11:15)

== ENCOUNTER 2021-08-20 06:50 | Inpatient (IN) ==
[2021-08-15 12:13] LABS: Basophils % 0.4 % (0.0-0.8); Eosinophils # 0.2 10*3/uL (0.0-0.87); Eosinophils % 1.9 % (0.00-10.9); Hematocrit 37.9 VOL% (35.7-47.0); Hemoglobin 12.6 GM/DL (12.0-16.0); Immature Granulocytes % 0.3 %; Immature Granulocytes Absolute 0.03 #; Lymphocytes # 2.7 10*3/uL (1.4-4.0); Lymphocytes % 29.2 % (21.3-54.2); Mean Corpuscular HGB Conc 33.2 GM/DL (32-36); Mean Corpuscular Volume 97.4 FL (87-102); Mean Platelet Volume 10.8 FL (9.6-12.0); Monocytes # 0.8 10*3/uL (0.11-0.8); Monocytes % 8.2 % (1.7-12.7); Platelet Count 191 T/CUMM (130-400); Red Blood Count 3.89 MC/CUMM (3.8-5.5); White Blood Count 9.1 T/CUMM (4-12)
[2021-08-15 12:29] LABS: INR 0.9; PT Patient Result 10.3 SECS (10.5-12.0); Partial Thromboplastin Time 26.5 SECS (23.8-32.1)
[2021-08-15 12:46] LABS: Albumin 3.7 G/DL (3.4-5.0); Bilirubin,Total 0.4 MG/DL (0.20-1.00); Calcium 9.2 MG/DL (8.5-10.1); Potassium 4.4 MMOL/L (3.5-5.1); Total Protein 7.3 G/DL (6.4-8.2)
[2021-08-20] MEDS ORDERED: HEPARIN/NACL 0.9% 2 UNITS/ML 1,000 UNIT/500 ML BAG IV ONE (07:02)
[2021-08-20] MEDS ORDERED: NITROGLYCERIN DRIP 50 MG/250 ML BOTTLE IV ONE (07:02)
[2021-08-20] MEDS ORDERED: PHENYLEPHRINE DRIP 20 MG/250 ML PREMIX IV ONE (07:02)
[2021-08-20] MEDS: LACTATED RINGERS 1,000 ML IV SCH ×3 (07:48→20:36)
[2021-08-20] MEDS ORDERED: LIDOCAINE 1% 5 ML VIAL ONE (08:41)
[2021-08-20] MEDS ORDERED: BUPIVACAINE MPF 0.5% 30 ML VIAL ONE (08:43)
[2021-08-20] MEDS ORDERED: DEXAMETHASONE 4 MG/1 ML VIAL ONE (08:43)
[2021-08-20] MEDS ORDERED: ONDANSETRON 4 MG/2 ML VIAL ONE ×2 (08:47→09:00)
[2021-08-20] MEDS ORDERED: fentaNYL 100 MCG/2 ML VIAL ONE ×2 (08:47→08:57)
[2021-08-20] MEDS ORDERED: HEPARIN 5,000 UNIT/1 ML VIAL ONE (08:51)
[2021-08-20] MEDS ORDERED: MIDAZOLAM 2 MG/2 ML VIAL ONE (08:57)
[2021-08-20] MEDS ORDERED: ROCURONIUM 50 MG/5 ML VIAL IV ONE (09:00)
[2021-08-20] MEDS ORDERED: LIDOCAINE 2% 5 ML VIAL ONE (09:00)
[2021-08-20] MEDS ORDERED: HEPARIN 10,000 UNIT/10 ML VIAL ONE (09:00)
[2021-08-20] MEDS ORDERED: propofoL 200 MG/20 ML VIAL IV ONE (09:00)
[2021-08-20] MEDS ORDERED: SEVOFLURANE 1 UNIT/15 MINUTE INH ONE (09:00)
[2021-08-20] MEDS ORDERED: PROTAMINE SULFATE 50 MG/5 ML VIAL IV ONE (10:22)
[2021-08-20] MEDS ORDERED: SUGAMMADEX 200 MG/2 ML VIAL IV ONE ×2 (10:30→10:35)
[2021-08-20] MEDS ORDERED: oxyCODONE/ACETAMINOPHEN 5-325 MG TABLET PO PRN (10:33)
[2021-08-20] MEDS ORDERED: HYDROmorphone 1 MG/1 ML SYRINGE IV PRN ×2 (10:33)
[2021-08-20] MEDS ORDERED: PROMETHAZINE 25 MG/1 ML VIAL IM PRN (10:33)
[2021-08-20] MEDS ORDERED: NALOXONE 0.4 MG/ML VIAL IV PRN (10:33)
[2021-08-20] MEDS ORDERED: GLUCAGON 1 MG VIAL IM PRN (10:33)
[2021-08-20] MEDS ORDERED: ONDANSETRON 4 MG/2 ML VIAL IV PRN (10:33)
[2021-08-20] MEDS ORDERED: NITROGLYCERIN SL 0.4 MG TABLET SL PRN (10:35)
[2021-08-20] MEDS ORDERED: PHENYLEPHRINE DRIP 40 MG/250 ML PREMIX IV SCH (11:00)
[2021-08-20] MEDS ORDERED: PHENYLEPHRINE DRIP 40 MG/250 ML PREMIX IV PRN (11:58)
[2021-08-20] MEDS: oxyCODONE/ACETAMINOPHEN 5-325 MG TABLET PO PRN ×2 (12:40→20:38)
[2021-08-20] MEDS: NITROPRUSSIDE 100 MG in DEXTROSE 5% 250 ML IV SCH (13:00)
[2021-08-20] MEDS: RANOLAZINE 500 MG TABLET PO SCH (20:35)
[2021-08-20] MEDS: carvediloL 6.25 MG TABLET PO SCH (20:36)
[2021-08-20] MEDS: ISOSORBIDE DINITRATE 20 MG TABLET PO SCH (20:36)
[2021-08-20] MEDS: PANTOPRAZOLE 40 MG TABLET PO SCH (20:36)
[2021-08-20] MEDS: NON-FORMULARY MEDICATION (Budesonide-Glycopyr-Formoterol [Breztri Aerosphere] 160-9-4.8 mc INH SCH (20:57)
[2021-08-20] MEDS ORDERED: ROSUVASTATIN 20 MG TABLET PO SCH (21:00)
[2021-08-21] MEDS: oxyCODONE/ACETAMINOPHEN 5-325 MG TABLET PO PRN (05:24)
[2021-08-21] MEDS: LACTATED RINGERS 1,000 ML IV SCH ×2 (07:00→08:00)
[2021-08-21] MEDS: carvediloL 6.25 MG TABLET PO SCH (08:45)
[2021-08-21] MEDS: PANTOPRAZOLE 40 MG TABLET PO SCH (08:45)
[2021-08-21] MEDS: ISOSORBIDE DINITRATE 20 MG TABLET PO SCH (08:45)
[2021-08-21] MEDS: RANOLAZINE 500 MG TABLET PO SCH (08:45)
[2021-08-21] MEDS ORDERED: ASPIRIN EC 81 MG TABLET PO SCH ×2 (09:00)
[2021-08-21] MEDS ORDERED: CLOPIDOGREL 75 MG TABLET PO SCH ×2 (09:00)
[2021-08-21] MEDS: NON-FORMULARY MEDICATION (Budesonide-Glycopyr-Formoterol [Breztri Aerosphere] 160-9-4.8 mc INH SCH (09:00)
[2021-08-21] MEDS ORDERED: VENLAFAXINE XR 75 MG CAPSULE PO SCH (09:00)
[2021-08-21] MEDS: NITROPRUSSIDE 100 MG in DEXTROSE 5% 250 ML IV SCH (11:00)
[2021-08-21 12:41] VITALS: BP 149/94
== END 2021-08-21 14:45 | disposition home or self-care (01) | DRG 38 ==
LOC: N.SDSINP 06:50 → N.ICU 11:19
PROVIDERS: ADMIT Surgery; ATTEND Surgery